=== PATIENT | female | born 2000 | race Caucasian/White ===

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

== ENCOUNTER 2022-02-08 12:45 | Inpatient (IN) | payer OTHER ==
[~2022-02-08] VITALS: Ht 167.6 cm; Wt 8.7 kg
[~2022-02-08 12:45] MED LIST: EFFE150C2 PO; PANT40TA29 PO; birth control pill
[2022-02-08] MEDS ORDERED: traZODone 50 MG TAB PO PRN (15:35)
[2022-02-08] MEDS ORDERED: MAALOX 30 ML SUSP *UDC PO PRN (15:35)
[2022-02-08] MEDS ORDERED: MOM 30ML SUSPENSION UDC PO PRN (15:35)
[2022-02-08] MEDS ORDERED: IBUPROFEN 400MG TAB PO PRN (15:35)
[2022-02-09 06:32] VITALS: BP 124/66
[2022-02-09] MEDS ORDERED: INFLUENZA QUADRIVALENT PF VACCINE 0.5ML SYRINGE IM ONE (09:00)
[2022-02-09] MEDS ORDERED: HOME MED LIST COMPLETE! XX SCH (09:25)
[2022-02-09] MEDS: VENLAFAXINE **XR** 75MG CAPSULE PO SCH (09:47)
[2022-02-09] MEDS: PANTOPRAZOLE 40MG TAB (PROTONIX) PO SCH (09:47)
[2022-02-09 16:29] VITALS: BP 123/78
[2022-02-10 06:00] VITALS: BP 117/64
[2022-02-10] MEDS: VENLAFAXINE **XR** 75MG CAPSULE PO SCH (09:51)
[2022-02-10] MEDS: PANTOPRAZOLE 40MG TAB (PROTONIX) PO SCH (09:51)
[2022-02-11 06:00] VITALS: BP 129/81
[2022-02-11] MEDS: PANTOPRAZOLE 40MG TAB (PROTONIX) PO SCH (09:56)
[2022-02-11] MEDS: VENLAFAXINE **XR** 75MG CAPSULE PO SCH (09:56)
== END 2022-02-11 12:27 | disposition home or self-care (01) | DRG 885 ==
LOC: M PSY 16:54
PROVIDERS: ADMIT Psychiatry & Neurology Psychiatry; ATTEND Psychiatry & Neurology Psychiatry
DX: F33.2 Major depressive disorder, recurrent severe without psychotic features (principal); U07.1 COVID-19; R45.851 Suicidal ideations; F43.23 Adjustment disorder with mixed anxiety and depressed mood; Z91.51 Personal history of suicidal behavior; Z91.52 Personal history of nonsuicidal self-harm; Z63.0 Problems in relationship with spouse or partner; Z63.5 Disruption of family by separation and divorce; Z63.8 Other specified problems related to primary support group; Z79.899 Other long term (current) drug therapy; Z88.5 Allergy status to narcotic agent; Z88.8 Allergy status to other drugs, medicaments and biological substances; K29.70 Gastritis, unspecified, without bleeding